=== PATIENT | female | born 1995 | race Caucasian/White ===

== ENCOUNTER 2023-11-21 09:34 | Day surgery (SDC) | payer BC, OTHER ==
[2023-11-13 11:39] VITALS: BMI 23.7
[2023-11-21] MEDS ORDERED: Bacitracin Zinc Ointment 30 gm TUBE ONE (09:43)
[2023-11-21] MEDS ORDERED: EPINEPHrine 1 MG/ML VIAL ONE (09:43)
[2023-11-21] MEDS ORDERED: Lidocaine 1% (PF) 30 ML VIAL ONE (09:43)
[2023-11-21] MEDS ORDERED: Oxymetazoline HCl 0.05% (30 ML BOT) ONE (10:12)
[2023-11-21] MEDS ORDERED: fentaNYL PF 100 MCG/2 ML SYRINGE ONE (10:21)
[2023-11-21] MEDS ORDERED: PROPOFOL 40 ML ONE (10:21)
[2023-11-21 10:42] LABS: Hematocrit 40.4 % (36.0-47.0)
[2023-11-21] MEDS ORDERED: Lidocaine 4% Topical Sol 50 ML BOT ONE (10:45)
[2023-11-21 11:20] LABS: BHCG - Serum Negative (NEGATIVE); Pregs Control Background? CLEAR/WHITE (CLR/WHITE); Pregs Control Bar Appear? YES (CONTROL BAR)
[2023-11-21] MEDS ORDERED: Dexamethasone 20 MG/5 ML VIAL ONE (11:30)
[2023-11-21] MEDS ORDERED: Rocuronium Bromide 10 MG/ML (10ML VIAL) ONE (11:30)
[2023-11-21] MEDS ORDERED: Ondansetron PF 4 MG/2 ML Vial ONE (11:30)
[2023-11-21] MEDS ORDERED: Lidocaine 1% PF 5 ML VIAL ONE (11:34)
[2023-11-21] MEDS ORDERED: SUGAMMADEX SODIUM 200 MG/2 ML VIAL ONE (11:39)
[2023-11-21] MEDS ORDERED: fentaNYL 50 mcg/mL 1 mL Vial ONE ×2 (12:36→13:15)
[2023-11-21] MEDS ORDERED: Acetaminophen 500 MG TAB ONE (14:13)
== END 2023-11-21 14:30 | disposition home or self-care (01) ==
LOC: SDC 09:34
PROVIDERS: ATTEND Otolaryngology Plastic Surgery within the Head & Neck
PROC: 09BM0ZZ Excision of Nasal Septum, Open Approach (ICD-10-PCS; principal; 2023-11-21)
DX: J34.2 Deviated nasal septum (principal); J34.3 Hypertrophy of nasal turbinates; F32.A Depression, unspecified; F41.9 Anxiety disorder, unspecified; J30.89 Other allergic rhinitis; J30.81 Allergic rhinitis due to animal (cat) (dog) hair and dander
CPT/HCPCS: 84703; 85014; J0171; J1100; J2001; J2405; J2704; J3010